=== PATIENT | female | born 1990 | race Caucasian/White ===

== ENCOUNTER 2017-04-17 18:22 | Emergency (ER) | payer MEDICAID, OTHER ==
[~2017-04-17] VITALS: Ht 165.1 cm; Wt 79.5 kg
[~2017-04-17 18:22] MED LIST: ACET325T33 PO; ACET500C5 PO; AMO500 PO; CALC600T11 PO; FERR27TA PO; GUAI118L22 PO; IBUP-1542 PO; LORA1TAB54 PO; ONDA4TAB35 PO; PREN1TAB49 PO
[2017-04-17 19:04] VITALS: Ht 165.1 cm; Wt 79.5 kg
[2017-04-17] MEDS ORDERED: IBUP-1542 PO (19:23)
[2017-04-17] MEDS ORDERED: AMO500 PO (19:23)
--- NOTE | 2017-04-17 19:25 | ERD ---
ER Documentation Chief Complaint Date/Time DATE: 04/17/17 TIME: 19:[address] nausea and fever x 2 days. denies abd pain, v/d HPI She is a 26-year-old female with a past medical history of strep pharyngitis presents emergency department with concerns of throat pain, nausea, fever and generalized body aches. Patient's states she has pain with swallowing. Patient states she feels that her tonsils are enlarged. Patient denies any chills, trismus or hyperextension of her neck. Patient reports developing a fever yesterday night, tactile fevers. Patient states she took a [facility] fever reliever. Patient states she last took this fever reliever at 2:30 PM. Patient also does report a headache in her frontal and occipital regions. Patient denies any sudden 10/10 onset of the pain. She does report nausea however she denies any vomiting. Patient denies any photophobia, phonophobia, blurry vision, neck stiffness, or LOC. She denies any abdominal pain, nausea, vomiting, diarrhea. Patient does have a mild dry cough secondary to throat irritation. Patient denies any recent travel. No sick contacts per ROS All systems reviewed and are negative except as per history of present illness. Medications Home Meds Active Scripts Amoxicillin* (Amoxicillin*) 500 Mg Cap, 500 MG PO BID for 7 Days, CAP Prov:NESS LÓPEZ PA-C 04/17/17 Ibuprofen* (Motrin*) 600 Mg Tab, 600 MG PO Q6, #30 TAB Prov:NESS LÓPEZ PA-C 04/17/17 Acetaminophen* (Tylophen*) 500 Mg Capsule, 1 CAP PO Q6H Y for PAIN AND OR ELEVATED TEMP, #20 CAP Prov:NESS LÓPEZ PA-C 08/19/16 Amoxicillin* (Amoxicillin*) 500 Mg Cap, 500 MG PO TID for 7 Days, CAP Prov:NESS LÓPEZ PA-C 08/19/16 Guaifenesin/Codeine Phosphate (CHERATUSSIN AC SYRUP) 118 Ml Liquid, 10 ML PO Q6H Y for COUGH, #118 ML Prov:DHARA ALCAZAR NP 08/16/16 Loratadine/Pseudoephedrine* (Claritin-D* 12 Hr) 5-120 Mg Tab.er.12h, 1 TAB PO Q12, #10 TAB.SA Prov:SUSAN OCONNOR PA-C 01/25/16 Ondansetron Hcl* (Zofran* ODT) 4 mg -ODT Tab.disper, 4 MG PO Q6 Y for NAUSEA AND /OR VOMITING, #10 TAB Prov:SUSAN OCONNOR PA-C 01/25/16 Acetaminophen* (Tylenol*) 325 Mg Tablet, 2 TAB PO Q6 Y for PAIN AND OR ELEVATED TEMP, #30 TAB Prov:SUSAN OCONNOR PA-C 01/25/16 Ibuprofen* (Ibuprofen*) 600 Mg Tab, 600 MG PO Q6, #20 0 Refills Prov:DIANA RAMÍREZ MD 06/26/15 Reported Medications Calcium Carbonate* (Calcium Carbonate*) 600 MG Ca Tab, 600 MG PO DAILY, TAB 06/16/15 Ferrous Sulfate (Iron) 1 Tab Tablet, 1 TAB PO DAILY 08/09/11 Vits W-Ca,Fe,Fa(<1MG) () 1 Tab Tablet, 1 PO DAILY 08/09/11 Allergies Allergies: Coded Allergies: No Known Allergy (Unverified , 04/17/17) PMhx/Soc Hx Miscellaneous Medical Probl: Yes Hx Alcohol Use: Yes (occassional) Hx Substance Use: No Hx Tobacco Use: Yes Physical Exam Vitals Vital Signs Date Time Temp Pulse Resp B/P Pulse Ox O2 Delivery O2 Flow Rate FiO2 04/17/17 19:04 99.2 84 18 110/74 100 Physical Exam GENERAL: Well-developed, well-nourished female. Appears in no acute distress. Eating in full sentences. HEAD: Normocephalic, atraumatic. No deformities or ecchymosis. EYE: Pupils equal, round, and reactive to light. EOMs intact. No conjunctival erythema. No eye discharge. ENT: External ear without any masses or tenderness. Auditory canals clear bilaterally. TM visualized bilaterally, non-erythematous, non-bulging. Nasal mucosa pink with no discharge. Oropharynx is erythematous with bilateral tonsillar swelling and and erythema. Exudates noted on the right tonsil.. No uvula deviation. No kissing tonsils. No drooling. No trismus. NECK: Supple. No meningismus. Normal ROM of the neck. No neck stiffness. No hyperextension of the neck. LUNG: Clear to auscultation bilaterally. No rhonchi, wheezing, rales or coarse breath sounds. HEART: Regular rate and rhythm. No murmurs, rubs or gallops. EXTREMITES: Equal pulses bilaterally. No peripheral clubbing, cyanosis or edema. No unilateral leg swelling. NEUROLOGIC: Alert and oriented to person, place and time. Moving all four extremities. 5/5 strength in all extremities. Normal speech. Steady gait. Negative Brudzinski sign. Negative Kernig sign. SKIN: Normal color. Warm and dry. No rashes or lesions. Procedures/MDM MEDICAL DECISION MAKING: This is a 26-year-old female who presents to the ED with concerns of throat pain , fever, nausea, headache and generalized body aches. Vital signs were reviewed. Patient was afebrile. Patient was not hypoxic. Patient did admit to history of strep pharyngitis and stated that her symptoms and feel similar at this time. Oropharynx was erythematous with bilateral tonsillar swelling. Oropharynx were noted on the right tonsil. The patient does not have trismus, muffled voice, uvula deviation, unilateral tonsillar swelling, or drooling. No signs of neck swelling or hyperextension of the neck noted. Given these findings , the patients presentation is most consistent with presumed strep pharyngitis. I have a much lower clinical suspicion for epiglottitis, peritonsillar abscess, retropharyngeal abscess, Ludwigs angina, dental abscess , meningitis, acute otitis media, sepsis. PRESCRIPTIONS: Ibuprofen, amoxicillin DISCHARGE: At this time, patient is stable for discharge and outpatient management. Supportive therapies such as OTC throat lozenges and warm salt water gurgles were discussed. I have instructed the patient to follow-up with his/her primary care physician in 1-2 days. I have discussed with the patient the possibility of needing to see a specialist for further workup and imaging studies if symptoms persist. I have instructed the patient to promptly return to the ER for any new or worsening symptoms including increased pain, fever, nausea, vomiting, weakness or LOC. The patient and/or family expressed understanding of and agreement with this plan. All questions were answered. Home care instructions were provided. Disclaimer: Inadvertent spelling and grammatical errors are likely due to EHR/ dictation software use and do not reflect on the overall quality of patient care. Also, please note that the electronic time recorded on this note does not necessarily reflect the actual time of the patient encounter. Departure Diagnosis: Primary Impression: Strep pharyngitis Additional Impression: Generalized muscle ache Condition: Stable Patient Instructions: Pharyngitis, Strep (Presumed) Additional Instructions: Call your primary care doctor TOMORROW for an appointment during the next 1-2 days.See the doctor sooner or return here if your condition worsens before your appointment time. NESS LÓPEZ PA-C Apr 17, 2017 19:25
== END 2017-04-17 20:03 | disposition home or self-care (01) ==
LOC: FTE 18:22
DX: J02.0 Streptococcal pharyngitis (principal); M79.1 Myalgia
CPT/HCPCS: 99283

== ENCOUNTER 2018-06-21 18:14 | Inpatient (IN) | END 2018-06-23 17:45 | disposition home or self-care (01) | DRG 807 ==